=== PATIENT | female | born 1985 | race Caucasian/White ===

== ENCOUNTER 2016-05-14 22:30 | Inpatient (IN) | payer OTHER ==
[~2016-05-14] VITALS: Ht 162.6 cm; Wt 83.5 kg
[~2016-05-14 22:30] MED LIST: AZITHROMYCIN250 MG1 PO; TESSALON200 MG PO
[2016-05-14 23:25] LABS: HEMATOCRIT 42.2 % (36.0-46.0); MCH 29.4 PG (29.0-34.0); MCHC 33.4 G/DL (30.0-36.0); MCV 88.1 FL (83-99); MEAN PLAT.VOLUME 10.4 uM^3 (9.5-12.4); PLATELET COUNT 317 K/uL (156-360); RBC DIS.WIDTH-CV 13.2 % (11.8-14.6); RBC DIS.WIDTH-SD 42.2 % (39-53); RED BLOOD COUNT 4.79 M/uL (3.80-5.20)
[2016-05-14 23:27] LABS: ADD MIUA? YES; BILIRUBIN NEGATIVE; BLOOD TRACE; COLOR YELLOW ((YELLOW)); GLUCOSE (STRIP) NEGATIVE; KETONES NEGATIVE; LEUKOCYTES TRACE; NITRITE NEGATIVE; PROTEIN (STRIP) >=300; SPECIFIC GRAVITY 1.029 (1.000-1.030); UROBILINOGEN 0.2 MG/DL (0.2-1.0)
[2016-05-14 23:30] LABS: EOSINOPHIL (%) 0.8 % (0-5); EOSINOPHIL COUNT 0.2 K/uL (0-0.3); IMMATURE GRANULOCYTE (%) 0.4 % (0.0-0.7); IMMATURE GRANULOCYTE COUNT 0.9 K/uL; LYMPHOCYTE COUNT 2.5 K/uL (1.0-2.8); MONOCYTE (%) 4.2 % (3-12); NEUTROPHIL (%) 83.8 % (45-76); NEUTROPHIL COUNT 20.1 K/uL (1.8-6.4)
[2016-05-14 23:33] LABS: CHLORIDE 112 mEq/L (99-109); POTASSIUM 3.1 mEq/L (3.7-5.4); SODIUM 141 mEq/L (136-147)
[2016-05-14 23:35] LABS: GLUCOSE 144 mg/dL (70-99)
[2016-05-14 23:36] LABS: ANION GAP 12 MEQ/L (2-14)
[2016-05-14 23:38] LABS: SERUM ETHYL ALCOHOL < 10 mg/dL
[2016-05-14 23:38] LABS: BICARBONATE 19.7 mEq/L (22-26); CARBOXY HGB 2.2 % (0-5); DEVICE PB840; FI02 100 %; MECHANICAL RATE 20 resp/min; METHEMOGLOBIN 1.2 % (0-1.5); MODE AC; PCO2 43 mm Hg (35-45); PEEP 8 CM/H20; PO2 81 mm Hg (80-100); SITE LR; TIDAL VOLUME 600 ML; TOTAL RESP RATE 20 resp/min; pH 7.27 (7.35-7.45)
[2016-05-14 23:39] LABS: GFR ESTIMATE (CALCULATED) > 59 mL/min/
[2016-05-14 23:40] LABS: AMPHETAMINE NEGATIVE (500 ng/mL); BARBITURATES NEGATIVE (200 ng/mL); BENZODIAZEPINES PRESUMPTIVE POSITIVE (150 ng/mL); COCAINE NEGATIVE (150 ng/mL); METHADONE PRESUMPTIVE POSITIVE (200 ng/mL); METHAMPHETAMINE NEGATIVE (500 ng/mL); OPIATES (MORPHINE) PRESUMPTIVE POSITIVE (100 ng/mL); OXYCODONE PRESUMPTIVE POSITIVE (100 ng/mL); PHENCYCLIDINE NEGATIVE (25 ng/mL); PROPOXYPHENE NEGATIVE (300 ng/mL); THC CANNABINOIDS NEGATIVE (50 ng/mL); TRICYCLIC ANTIDEPRESSANTS NEGATIVE (300 ng/mL)
[2016-05-14 23:41] LABS: ADD MEDTOX COMMENT Y; INTERNAL CONTROLS VALID? YES
[2016-05-14 23:41] LABS: UREA NITROGEN (BUN) 16 mg/dL (9-23)
[2016-05-14 23:42] LABS: CREATINE KINASE 130 IU/L (1-294); SALICYLATE < 5.0 MG/DL (15-30); TOTAL CK 130 IU/L (1-294)
[2016-05-14 23:49] LABS: CK-MB 1.1 ng/mL (0.0-4.9); QUANTITATIVE HCG < 4.0 MIU/ML
[2016-05-14 23:55] LABS: CASTS PRESENT /LPF; EPITHELIAL CELLS 3+; FINE GRANULAR CASTS 25-30 /LPF; MUCUS 1+
[2016-05-14 23:56] LABS: COARSE GRANULAR CASTS 15-20 /LPF
[2016-05-14 23:57] LABS: BACTERIA 1+; CRYSTALS NONE SEEN; UCUL ADDED? NO
[2016-05-15] VITALS (28 sets, daily range): BP systolic 87–133; BP diastolic 42–72
[2016-05-15] MEDS ORDERED: XANAX0.5 MG PO (00:18)
[2016-05-15] MEDS ORDERED: OXYCODONE HCL15 MG PO (00:19)
[2016-05-15 00:44] LABS: TOTAL BILIRUBIN 0.3 mg/dL (0.0-1.0)
[2016-05-15 00:45] LABS: ALKALINE PHOSPHATASE 62 IU/L (3-129)
[2016-05-15 00:48] LABS: DIRECT BILIRUBIN 0.1 mg/dL (0.0-0.3)
[2016-05-15 03:11] LABS: METH RESISTANT S AUREUS PCR NEGATIVE (NEGATIVE)
[2016-05-15 03:23] LABS: PROBE CHECK PASS; SPECIMEN PROCESSING CONTROL PASS
[2016-05-15 03:41] LABS: BASE EXCESS -7.4 mEq/L (-3 to +3); BICARBONATE 19.7 mEq/L (22-26); CARBOXY HGB 2.3 % (0-5); DEVICE 840; FI02 60 %; MECHANICAL RATE 24 resp/min; METHEMOGLOBIN 1.5 % (0-1.5); MODE AC; PCO2 45 mm Hg (35-45); PEEP 12 CM/H20; PO2 87 mm Hg (80-100); SITE LR; TIDAL VOLUME 400 ML; TOTAL RESP RATE 24 resp/min; pH 7.25 (7.35-7.45)
[2016-05-15 03:43] LABS: BENZODIAZEPINES, URINE SCREEN POSITIVE (200 ng/mL)
[2016-05-15 05:51] LABS: INTER. NORMALIZED RATIO 1.1; PROTHROMBIN TIME 10.7 (9.2-11.2)
[2016-05-15 05:57] LABS: ANION GAP 6 MEQ/L (2-14); CHLORIDE 111 MEQ/L (99-109); CREATINE KINASE 125 IU/L (1-294); GFR ESTIMATE (CALCULATED) > 59 mL/min/; MAGNESIUM 1.7 mg/dl (1.3-2.7); SAMPLE HEMOLYSIS CHECK 0; SAMPLE ICTERIC CHECK 0; SAMPLE LIPEMIA CHECK 0; SODIUM 140 MEQ/L (136-147); TRIGLYCERIDES 133 MG/DL (Normal: <150); UREA NITROGEN (BUN) 16 mg/dL (9-23)
[2016-05-15 05:58] LABS: HEMATOCRIT 42.8 % (36.0-46.0); MCH 28.9 PG (29.0-34.0); MCHC 32.2 G/DL (30.0-36.0); MCV 89.7 FL (83-99); MEAN PLAT.VOLUME 10.7 uM^3 (9.5-12.4); PLATELET COUNT 287 K/uL (156-360); RBC DIS.WIDTH-CV 13.4 % (11.8-14.6); RBC DIS.WIDTH-SD 44.1 % (39-53); RED BLOOD COUNT 4.77 M/uL (3.80-5.20); WHITE BLOOD COUNT 13.3 K/uL (4.1-10.2)
[2016-05-15 06:01] LABS: POINT-OF-CARE METER ID UU13113803
[2016-05-15 06:07] LABS: GLUCOSE 90 mg/dL (70-99); POTASSIUM 5.2 MEQ/L (3.7-5.4)
[2016-05-15 07:34] LABS: Estimated Average Glucose 97 mg/dL (70-123)
[2016-05-15 12:27] LABS: POINT-OF-CARE METER ID UU13113803
[2016-05-15 18:28] LABS: POINT-OF-CARE METER ID UU13113803
[2016-05-15 19:22] LABS: BASE EXCESS -2.5 mEq/L (-3 to +3); BICARBONATE 21.6 mEq/L (22-26); CARBOXY HGB 1.7 % (0-5); COMMENTS - BLOOD GASES A+C+; DEVICE 840; FI02 40 %; MECHANICAL RATE 25 resp/min; METHEMOGLOBIN 1.8 % (0-1.5); MODE A/C; PCO2 34 mm Hg (35-45); PO2 104 mm Hg (80-100); SITE RR; TOTAL RESP RATE 25 resp/min; pH 7.41 (7.35-7.45)
[2016-05-15 19:23] LABS: PEEP 15 CM/H20; TIDAL VOLUME 400 ML
[2016-05-15 20:37] LABS: BASE EXCESS -3.5 mEq/L (-3 to +3); BICARBONATE 21.4 mEq/L (22-26); CARBOXY HGB 1.8 % (0-5); COMMENTS - BLOOD GASES A+C+; DEVICE 840; FI02 40 %; MECHANICAL RATE 24 resp/min; METHEMOGLOBIN 1.5 % (0-1.5); MODE A/C; PCO2 37 mm Hg (35-45); PO2 132 mm Hg (80-100); SITE RR; pH 7.37 (7.35-7.45)
[2016-05-15 20:38] LABS: PEEP 12 CM/H20; TIDAL VOLUME 400 ML
[2016-05-15 21:45] LABS: CARBOXY HGB 1.4 % (0-5); COMMENTS - BLOOD GASES A+C+; DEVICE 840; FI02 40 %; METHEMOGLOBIN 1.7 % (0-1.5); PCO2 38 mm Hg (35-45); PO2 160 mm Hg (80-100); SITE LR; pH 7.37 (7.35-7.45)
[2016-05-15 21:46] LABS: MECHANICAL RATE 20 resp/min; MODE SIMV; PEEP 10 CM/H20; PRES. SUPPORT 10 CM/H2O
[2016-05-16] VITALS (21 sets, daily range): BP systolic 0–131; BP diastolic 0–69
[2016-05-16 00:59] LABS: POINT-OF-CARE METER ID UU14174217
[2016-05-16 05:27] LABS: POINT-OF-CARE METER ID UU14174217
[2016-05-16 05:39] LABS: BASE EXCESS -2.6 mEq/L (-3 to +3); BICARBONATE 22.6 mEq/L (22-26); CARBOXY HGB 1.7 % (0-5); METHEMOGLOBIN 1.4 % (0-1.5); PCO2 40 mm Hg (35-45); pH 7.36 (7.35-7.45)
[2016-05-16 05:40] LABS: CONTINUOUS POS AIRWAY PRESSURE 5 cm H2O; DEVICE 840; FI02 30 %; MODE SPONT; PO2 101 mm Hg (80-100); PRES. SUPPORT 10 CM/H2O; SITE LR; TOTAL RESP RATE 23 resp/min
[2016-05-16 08:11] LABS: POINT-OF-CARE METER ID UU14174217
[2016-05-16 08:12] LABS: HEMATOCRIT 29.8 % (36.0-46.0); MCH 29.2 PG (29.0-34.0); MCHC 32.6 G/DL (30.0-36.0); MCV 89.8 FL (83-99); RBC DIS.WIDTH-CV 13.8 % (11.8-14.6); RBC DIS.WIDTH-SD 45.4 % (39-53)
[2016-05-16 08:28] LABS: RED BLOOD COUNT 3.32 M/uL (3.80-5.20); WHITE BLOOD COUNT 8.1 K/uL (4.1-10.2)
[2016-05-16 08:36] LABS: ANION GAP 4 MEQ/L (2-14); CHLORIDE 111 MEQ/L (99-109); GFR ESTIMATE (CALCULATED) > 59 mL/min/; GLUCOSE 124 mg/dL (70-99); MAGNESIUM 1.8 mg/dl (1.3-2.7); SAMPLE HEMOLYSIS CHECK 0; SAMPLE ICTERIC CHECK 0; SAMPLE LIPEMIA CHECK 0; SODIUM 140 MEQ/L (136-147); UREA NITROGEN (BUN) 14 mg/dL (9-23)
[2016-05-16 08:37] LABS: CREATINE KINASE 354 IU/L (1-294); POTASSIUM 4.1 MEQ/L (3.7-5.4)
[2016-05-16 08:48] LABS: MEAN PLAT.VOLUME 10.8 uM^3 (9.5-12.4)
[2016-05-16 08:51] LABS: PLATELET COUNT 168 K/uL (156-360)
[2016-05-16 12:05] LABS: POINT-OF-CARE METER ID UU13113803
[2016-05-17] VITALS (7 sets, daily range): BP systolic 111–126; BP diastolic 57–81
[2016-05-18 04:00] VITALS: BP 133/84
[2016-05-18 07:58] VITALS: BP 127/69
[2016-05-18 11:29] VITALS: BP 124/67
[2016-05-18] MEDS ORDERED: AUGMENTIN875 MG PO (13:40)
[2016-05-18] MEDS ORDERED: IBUPROFEN600 MG PO (13:40)
== END 2016-05-18 14:38 | disposition home or self-care (01) | DRG 917 ==
LOC: EME → EDBD 22:30 → EME 22:30 → 5SOUTH 23:59 → EDOF 23:59 → 4WEST 23:59 → 5SOUTH 05-17 15:56
PROVIDERS: Emergency Medicine; Internal Medicine Critical Care Medicine
PROC: 5A1945Z Respiratory Ventilation, 24-96 Consecutive Hours (ICD-10-PCS; principal; 2016-05-14)
PROC: 0BH17EZ Insertion of Endotracheal Airway into Trachea, Via Natural or Artificial Opening (ICD-10-PCS; principal; 2016-05-14)
DX: T40.601A Poisoning by unspecified narcotics, accidental (unintentional), initial encounter (principal); T42.4X1A Poisoning by benzodiazepines, accidental (unintentional), initial encounter; J96.01 Acute respiratory failure with hypoxia; J69.0 Pneumonitis due to inhalation of food and vomit; N39.0 Urinary tract infection, site not specified; R04.2 Hemoptysis; R41.82 Altered mental status, unspecified; E87.2 Acidosis; E87.6 Hypokalemia; E83.51 Hypocalcemia; R73.9 Hyperglycemia, unspecified; L25.9 Unspecified contact dermatitis, unspecified cause; F17.210 Nicotine dependence, cigarettes, uncomplicated
CPT/HCPCS: 36600; 71010; 80048; 80076; 81003; 82550; 82553; 82803; 82948; 83036; 83605; 83735; 83930; 84100; 84478; 84702; 84999; 85025; 85027; 85610; 85730; 87070; 87086; 87205; 87641; 93005; 93306; 94002; 94003; 94010; 94640; 94640 76; 94799; 99202; 99281; 99285; G0480; J1650; J1815; J1885; J1940; J2060; J2405; J2543; J2704; J3475; J7030; J7040; J7050